=== PATIENT | male | born 1990 | race Caucasian/White ===

== ENCOUNTER 2018-10-19 12:21 | Emergency (ER) | payer BC ==
[~2018-10-19] VITALS: Ht 182.9 cm; Wt 102.1 kg
[2018-10-19 12:42] VITALS: BP_SYST 150
[2018-10-19] MEDS ORDERED: NACL 0.9% 1,000 ML IV ONE (13:30)
[2018-10-19] MEDS ORDERED: ONDANSETRON HCL 4 MG/2 ML VIAL IVP ONE (13:30)
[2018-10-19] MEDS ORDERED: KETOROLAC TROMETHAMINE 30 MG VIAL IVP ONE (13:30)
[2018-10-19] MEDS ORDERED: ACETAMINOPHEN 500 MG TABLET PO ONE (13:30)
[2018-10-19] MEDS ORDERED: OSELTAMIVIR PHOSPHATE 75 MG CAPSULE PO ONE (14:00)
[2018-10-19 15:07] VITALS: BP_SYST 138
== END 2018-10-19 15:09 | disposition home or self-care (01) ==
LOC: SED 12:21
DX: J10.1 Influenza due to other identified influenza virus with other respiratory manifestations (principal); R11.2 Nausea with vomiting, unspecified; M79.10 Myalgia, unspecified site; R03.0 Elevated blood-pressure reading, without diagnosis of hypertension
CPT/HCPCS: 71045; 86710; 96361; 96374; 96375; 99284; G9035; J1885; J2405; J7030; 36415